=== PATIENT | female | born 1975 | race American Indian/Alaskan Native ===

== ENCOUNTER 2017-07-26 09:33 | Day surgery (SDC) | payer OTHER ==
[2017-07-26] MEDS ORDERED: PERCOCET 5/325 PO PRN (12:10)
[2017-07-26] MEDS ORDERED: TORADOL IV PRN (12:10)
[2017-07-26] MEDS ORDERED: ZOFRAN IV PRN (12:10)
[2017-07-26] MEDS ORDERED: VERSED IV PRN (12:10)
--- NOTE | 2017-07-26 12:10 | Anesthesia Consultation ---
Anesthesia Consult and Med Hx Date of service: 07/26/17 - Airway Anesthetic Teeth Evaluation: Good ROM Head & Neck: Adequate Mental/Hyoid Distance: Adequate Mallampati Class: Class II Intubation Access Assessment: Probably Good - Pulmonary Exam CTA: Yes - Cardiac Exam Cardiac Exam: RRR - Pre-Operative Health Status ASA Pre-Surgery Classification: ASA2 Proposed Anesthetic Plan: General - Pulmonary Hx Smoking: No Hx Asthma: No - Cardiovascular System Hx Hypertension: Yes (HCTZ taken today) Hx Coronary Artery Disease: No - Central Nervous System Hx Neuromuscular Disorder: No Hx Seizures: No Hx Psychiatric Problems: No - Gastrointestinal Hx Ulcer: No - Endocrine Hx Renal Disease: No Hx Insulin Dependent Diabetes: No - Other Systems Hx Alcohol Use: No Hx Substance Use: No Hx Cancer: No Hx Obesity: No
--- NOTE | 2017-07-26 12:10 | Anesthesia Day of Surgery ---
Anesthesia Day of Surgery - Day of Surgery Patient Examined: Yes Patient H&P Reviewed: Yes Patient is NPO: Yes
[2017-07-26 12:19] LABS: Hematocrit 35.1 % (30.3-42.9); Hemoglobin 10.6 gm/dl (10.1-14.3); Mean Corpuscular HGB Conc 30 % (30-34); Mean Corpuscular Hemoglobin 22 pg (28-32); Mean Corpuscular Volume 72 fl (79-97); Platelet Count 503 K/mm3 (140-440); Red Blood Count 4.88 M/mm3 (3.65-5.03); Red Cell Distribution Width 32.3 % (13.2-15.2)
[2017-07-26 12:22] LABS: BUN/Creatinine Ratio 14; Blood Urea Nitrogen 11 mg/dL (7-17); Calcium 8.9 mg/dL (8.4-10.2); Hemolysis Index 0
[2017-07-26] MEDS ORDERED: ANCEF/STERILE WATER 2 GM/20 ML IV NR (13:00)
[2017-07-26] MEDS ORDERED: NACL 0.9% 1000 ML 1,000 ML IV SCH (13:00)
[2017-07-26 14:14] LABS: Anisocytosis 3+; Hypochromasia 2+; Total Cells Counted 100
[2017-07-26 14:15] LABS: Giant Platelets Rare; Large Platelets Few; Platelet Estimate Cons; Poikilocytosis 1+; Tear Drop Cells Few
[2017-07-26] MEDS ORDERED: DIPRIVAN 10 MG/ML IV ONE (16:47)
[2017-07-26] MEDS ORDERED: DILAUDID ONE (16:48)
[2017-07-26] MEDS ORDERED: SUBLIMAZE ONE (16:48)
[2017-07-26] MEDS ORDERED: ZOFRAN ONE (16:58)
[2017-07-26] MEDS ORDERED: QUELICIN ONE (17:00)
[2017-07-26] MEDS ORDERED: NEO SYNEPHRINE/NS Syringe(OR USE) IV ONE (17:00)
--- NOTE | 2017-07-26 17:49 | Post Anesthesia Evaluation ---
- Post Anesthesia Evaluation Patient Participated: Yes Airway Patent: Yes Stable Respiratory Function: Yes Nausea/Vomiting: No Temp > 96.8F: Yes Pain Manageable: Yes Adequeate Hydration: Yes Anesthesia Complications: No
[2017-07-26] MEDS ORDERED: LACTATED RINGERS 1,000 ML ONE (18:38)
--- NOTE | 2017-07-26 18:55 | Discharge Summary ---
Short Stay Discharge Plan Activity: no restrictions Weight Bearing Status: Full Weight Bearing Diet: regular Wound: remove dressing (72hrs.) Follow up with: CASSANDRA ENG MD [Primary Care Provider] - 6 Weeks WORK,DILCIA Etienne JR, MD [Staff Physician] - 7 Days
[2017-07-26] MEDS: DILAUDID IV PRN ×3 (19:20→19:48)
--- NOTE | 2017-07-26 20:21 | Operative Report ---
SERVICE: Plastic surgery. PREOPERATIVE DIAGNOSIS: Macromastia. POSTOPERATIVE DIAGNOSIS: Macromastia. PROCEDURE: Bilateral reduction mammoplasty with nipple areolar complex amputation. SURGEON: Henrique Mendoza M.D. EXPLOSIVE OPERATOR BOMB: ADRIEL Greenwood FINDINGS: 1500 gm removed from the right breast, 1300 gm removed from the left breast. DESCRIPTION OF PROCEDURE: The patient was brought to the operating room and placed on the table in supine position. Following administration of general anesthesia, bilateral breasts were prepped with Betadine solution and draped in the usual sterile manner. A #10 blade scalpel was used to make a circumareolar skin incision followed by de-epithelization of an inferior epidermal pedicle. Modified Berger pattern skin markings were incised with scalpel, deepened through subcutaneous fat and breast tissue using the electrocautery. Skin flaps were raised in standard manner as was fashioning of an inferior central mound pedicle. Breast tissue was resected inclusive of nipple areolar complexes bilaterally followed by hemostasis using the electrocautery. Closure was performed over 10 mm TIAN drains using interrupted and running subcuticular 2-0 Monocryl sutures. Mastisol, Steri-Strips, and sterile dressings applied. The patient tolerated procedure well and returned to recovery room in stable condition. JOB# [id number] FTW/NTS
[2017-07-26 21:31] VITALS: BP 144/80
== END 2017-07-26 21:04 | disposition home or self-care (01) ==
LOC: OR 09:33
PROVIDERS: ATTEND Plastic Surgery
DX: N62 Hypertrophy of breast (principal); Z79.899 Other long term (current) drug therapy
CPT/HCPCS: 19318; 36415; 80048; 81025; 82375; 85007; 85025; 88305; J0330; J0690; J1170; J2250; J2370; J2405; J2704; J3010; J7030; J7120

== ENCOUNTER 2017-10-25 06:30 | Day surgery (SDC) | payer OTHER ==
[2017-10-25 07:46] LABS: Hematocrit 33.6 % (30.3-42.9); Hemoglobin 10.5 gm/dl (10.1-14.3)
[2017-10-25] MEDS ORDERED: LACTATED RINGERS 1,000 ML ONE (08:05)
[2017-10-25] MEDS ORDERED: XYLOCAINE MPF 2% ONE (08:30)
[2017-10-25] MEDS ORDERED: DIPRIVAN 10 MG/ML IV ONE (08:30)
[2017-10-25] MEDS ORDERED: DEMEROL IV PRN (08:33)
[2017-10-25] MEDS ORDERED: ZOFRAN IV PRN (08:33)
[2017-10-25] MEDS ORDERED: REGLAN IV PRN (08:33)
[2017-10-25] MEDS ORDERED: TORADOL IV PRN (08:33)
[2017-10-25] MEDS ORDERED: DILAUDID IV PRN (08:33)
[2017-10-25] MEDS ORDERED: NARCAN 0.4 MG/1 ML IV PRN (08:33)
[2017-10-25] MEDS ORDERED: PERCOCET 5/325 PO PRN (08:33)
--- NOTE | 2017-10-25 08:38 | Anesthesia Consultation ---
Anesthesia Consult and Med Hx Date of service: 10/25/17 - Airway Anesthetic Teeth Evaluation: Chipped, Caps, Crowns ROM Head & Neck: Adequate Mental/Hyoid Distance: Adequate Mallampati Class: Class III Intubation Access Assessment: Probably Good - Pulmonary Exam CTA: Yes - Cardiac Exam Cardiac Exam: RRR - Pre-Operative Health Status ASA Pre-Surgery Classification: ASA2 Proposed Anesthetic Plan: General - Pre-Anesthesia Comment Pre-Anesthesia Comments: patient NPO >8 hours. Concerned about upper incisor temporary crown/cap. - Pulmonary Hx Smoking: Yes ( 3 YEARS) Hx Asthma: No - Cardiovascular System Hx Hypertension: Yes (3YEARS) Hx Coronary Artery Disease: No - Central Nervous System Hx Neuromuscular Disorder: No Hx Seizures: No Hx Psychiatric Problems: No - Gastrointestinal Hx Ulcer: No - Endocrine Hx Renal Disease: No Hx Insulin Dependent Diabetes: No - Hematic Hx Anemia: Yes - Other Systems Hx Alcohol Use: No Hx Substance Use: No Hx Cancer: No Hx Obesity: No
--- NOTE | 2017-10-25 08:42 | Anesthesia Day of Surgery ---
Anesthesia Day of Surgery - Day of Surgery Patient Examined: Yes Patient H&P Reviewed: Yes Patient is NPO: Yes Pramod's Test: N/A
[2017-10-25] MEDS ORDERED: LACTATED RINGERS 1,000 ML IV SCH (09:00)
[2017-10-25] MEDS ORDERED: ANCEF/STERILE WATER 2 GM/20 ML IV NR (09:00)
[2017-10-25] MEDS ORDERED: DILAUDID ONE (09:46)
[2017-10-25] MEDS ORDERED: ZOFRAN ONE (09:51)
[2017-10-25] MEDS ORDERED: DECADRON ONE (09:51)
[2017-10-25] MEDS ORDERED: NACL 0.9% IR ONE (09:55)
--- NOTE | 2017-10-25 11:01 | Operative Report ---
SERVICE: Plastic Surgery. PREOPERATIVE DIAGNOSES: 1. Bilateral absence of nipples. 2. Bilateral acquired breast deformity. 3. Status post bilateral breast reduction with nipple-areolar complex amputation. POSTOPERATIVE DIAGNOSES: 1. Bilateral absence of nipples. 2. Bilateral acquired breast deformity. 3. Status post bilateral breast reduction with nipple-areolar complex amputation. PROCEDURE: Bilateral nipple reconstruction. SURGEON: Henrique Mendoza MD SUPERVISOR CONTINGENTS: Augustine Carrillo CSA. DESCRIPTION OF PROCEDURE: The patient was brought to the operating room and placed on the table in supine position. Following administration of general anesthesia, bilateral breasts were prepped with Betadine solution and draped in usual sterile manner. A #10 blade scalpel was used to incise preoperative markings for a flag-shaped flap. A dermal flap was folded around upon itself in order to perform a cylinder using interrupted 3-0 Monocryl sutures. Donor site closed with interrupted 2-0 Monocryl sutures. A dermal base was deepithelialized, upon which the nipple rested and skin closure performed with a running subcuticular 3-0 Monocryl suture. Mastisol, Steri-Strips, and sterile dressings applied. The patient tolerated the procedure well and returned to recovery room in stable condition. JOB# [id number] FTW/NTS
[2017-10-25 12:44] VITALS: BP 127/76
--- NOTE | 2017-10-26 05:06 | Post Anesthesia Evaluation ---
- Post Anesthesia Evaluation Patient Participated: Yes Airway Patent: Yes Stable Respiratory Function: Yes Nausea/Vomiting: No Temp > 96.8F: Yes Pain Manageable: Yes Adequeate Hydration: Yes Anesthesia Complications: No Block Receding Appropriately: Not Applicable Patient on Ventilator: No
== END 2017-10-25 06:31 | disposition home or self-care (01) ==
LOC: OR 06:30
PROVIDERS: ATTEND Plastic Surgery
DX: N64.89 Other specified disorders of breast (principal); I10 Essential (primary) hypertension; K21.9 Gastro-esophageal reflux disease without esophagitis; Z90.13 Acquired absence of bilateral breasts and nipples; Z87.891 Personal history of nicotine dependence; Z98.890 Other specified postprocedural states
CPT/HCPCS: 19350; 36415; 81025; 84132; 85014; 85018; J0690; J1100; J1170; J1885; J2405; J2704; J7120